=== PATIENT | female | born 1945 | race Caucasian/White ===

== ENCOUNTER 2021-06-16 21:27 | Emergency (ER) | payer OTHER ==
[~2021-06-16] VITALS: Ht 165.1 cm; Wt 73.5 kg
[2021-06-16] MEDS ORDERED: LIPITOR40 MG PO (21:33)
[2021-06-16] MEDS ORDERED: CYCLOBENZAPRINE10 MG PO (23:22)
[2021-06-16] MEDS ORDERED: SKELAGESIC PO (23:22)
== END 2021-06-16 23:52 ==
LOC: ER 21:27
DX: S23.9XXA Sprain of unspecified parts of thorax, initial encounter (principal); S13.9XXA Sprain of joints and ligaments of unspecified parts of neck, initial encounter; V49.9XXA Car occupant (driver) (passenger) injured in unspecified traffic accident, initial encounter; Y93.9 Activity, unspecified; Y92.89 Other specified places as the place of occurrence of the external cause; Y99.9 Unspecified external cause status

== ENCOUNTER 2022-08-15 14:28 | Emergency (ER) | payer OTHER ==
[~2022-08-15] VITALS: Ht 165.1 cm; Wt 63.5 kg
[~2022-08-15 14:28] MED LIST: CYCLOBENZAPRINE10 MG PO; LIPITOR40 MG PO; SKELAGESIC PO
== END 2022-08-15 18:58 | disposition home or self-care (01) ==
LOC: ER 14:28
DX: S70.11XA Contusion of right thigh, initial encounter (principal); W19.XXXA Unspecified fall, initial encounter; Y93.89 Activity, other specified; Y92.89 Other specified places as the place of occurrence of the external cause; Y99.8 Other external cause status